=== PATIENT | male | born 1970 | race Hispanic/Latino ===

== ENCOUNTER 2020-08-10 08:28 | Day surgery (SDC) | payer MEDICARE ==
[~2020-08-10] VITALS: Ht 134.6 cm; Wt 30.4 kg
[2020-08-10] VITALS (12 sets, daily range): BP systolic 86–117; BP diastolic 52–79
[2020-08-10] MEDS ORDERED: SODIUM CHLORIDE 0.9% 1000ML 1,000 ML IV ONE (11:07)
[2020-08-10] MEDS ORDERED: MULT-1367 PO (11:51)
[2020-08-10] MEDS ORDERED: IPRA3AMP24 IH (11:51)
[2020-08-10] MEDS ORDERED: ACET-2247 PO (11:51)
[2020-08-10] MEDS ORDERED: [UNRECOGNIZED DRUG - CODE] PO (11:51)
[2020-08-10] MEDS ORDERED: LEVE100S7 PO (11:51)
[2020-08-10] MEDS ORDERED: PROPOFOL 10 MG/ML 20ML VIAL IV ONE ×2 (13:29→13:30)
[2020-08-10] MEDS ORDERED: CEFAZOLIN SODIUM 1 GM VIAL ONE (13:34)
== END 2020-08-10 15:00 ==
LOC: DAH 08:28
PROVIDERS: ATTEND Internal Medicine Gastroenterology
DX: K21.00 Gastro-esophageal reflux disease with esophagitis, without bleeding (principal); R62.7 Adult failure to thrive; K29.00 Acute gastritis without bleeding; R63.4 Abnormal weight loss; R63.3 Feeding difficulties; J45.909 Unspecified asthma, uncomplicated; I25.2 Old myocardial infarction; Q90.9 Down syndrome, unspecified; Z68.1 Body mass index [BMI] 19.9 or less, adult; Z79.899 Other long term (current) drug therapy
CPT/HCPCS: 43239; 43246; A4215; A4221; A4222; A4223; A4606; A4620; A4657; A4663; J0690; J2704 ×2; J7030 ×2